=== PATIENT | female | born 1940 | race Caucasian/White ===

== ENCOUNTER 2018-09-17 14:41 | Emergency (ER) | payer MEDICARE ==
[2018-09-17 15:13] LABS: BILIRUBIN,URINE NEGATIVE (NEGATIVE); GLUCOSE, URINE (UA) NEGATIVE (NEGATIVE); KETONES,URINE (UA) NEGATIVE (NEGATIVE); LEUKOCYTE ESTERASE, URINE SMALL (NEGATIVE); NITRITE,URINE NEGATIVE (NEGATIVE); OCCULT BLOOD,URINE TRACE-INTA (NEGATIVE); PROTEIN,URINE NEGATIVE (NEGATIVE); UROBILINOGEN,URINE 0.2 (NORMAL) E.U./dL (NORMAL)
[2018-09-17 15:21] LABS: CLARITY,URINE CLEAR (CLEAR)
[2018-09-17 15:32] LABS: RBC,URINE 0-5 /HPF (0-5); SQUAMOUS EPITHELIAL CELL,UR RARE Squamous (<= Few)
[2018-09-17 15:33] LABS: BACTERIA,URINE Rare /HPF (None Seen)
--- NOTE | 2018-09-17 16:04 | ED Physician Documentation ---
PD HPI ABD PAIN - Stated complaint Stated Complaint: FEMALE - Chief complaint Chief Complaint: UTI - History obtained from History obtained from: Patient - History of Present Illness Timing - onset: How many weeks ago (1) Timing - duration: Weeks (1) Timing - details: Gradual onset, Still present, Waxing and waning Quality: Cramping, Aching (mainly having intermittent pains in flank, lower thoracic area, both sides, and also noted some itching feeling in that same area intermittently. No rash nor sores. Intermittent cramping pain in lower mid abd at times, and noted frequency of urination but not dysuria per se. Denies vaginal bleeding nor discharge. Normal BMs. No fever nor chills. She says she had slight chest discomfort earlier today but not now. Not exertional.) Location: Suprapubic Radiation: Left flank, Right flank Improved by: No: Eating, Laying still Worsened by: No: Eating, Breathing, Position Associated symptoms: No: Fever, Nausea, Dysuria (but frequency) Recently seen: Not recently seen Review of Systems Constitutional: reports: Chills. denies: Fever, Myalgias Nose: denies: Rhinorrhea / runny nose, Congestion Throat: denies: Sore throat Respiratory: denies: Cough GI: reports: Abdominal Pain, Nausea. denies: Abdominal Swelling, Vomiting, Constipation, Diarrhea : reports: Frequency. 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 HEENT: Tonsil/Adenoidectomy - Present Medications Home Medications: Ambulatory Orders Medication Instructions Recorded Confirmed Dexamethasone [Decadron] 4 mg PO DAILY #5 tablet 09/17/18 Sulfamethox/Trimeth 800/160 1 each PO BID #14 tablet 09/17/18 [Bactrim Ds 800/160] Tramadol HCl 50 mg PO Q6H PRN #15 tablet 09/17/18 - Allergies Allergies/Adverse Reactions: Allergies Allergy/AdvReac Type Severity Reaction Status Date / Time amoxicillin Allergy Unknown Verified 09/17/18 14:50 - Living Situation Living Situation: reports: Alone Living Arrangement: reports: At home - Social History Does the pt smoke?: No Smoking Status: Never smoker Does the pt have substance abuse?: No - Family History Family history: reports: Non contributory PD ED PE NORMAL - Vitals Vital signs reviewed: Yes - General General: Alert and oriented X 3, No acute distress, Well developed/nourished - HEENT HEENT: Moist mucous membranes, Pharynx benign - Neck Neck: Supple, no meningeal sign, No adenopathy - Cardiac Cardiac: RRR, No murmur - Respiratory Respiratory: Clear bilaterally - Abdomen Abdomen: Normal bowel sounds, Soft, Non tender, Non distended, No organomegaly - Rectal Rectal: Deferred - Back Back: Other (mild CVA tender both sides) - Derm Derm: Normal color, Warm and dry, No rash, Other (no skin sensitivity at the thoracic area. ) - Neuro Neuro: Alert and oriented X 3, No motor deficit, Normal speech - Psych Psych: Normal mood, Normal affect Results - Vitals Vitals: Vital Signs - 24 hr 09/17/18 09/17/18 14:46 17:17 Temperature 36.6 C Heart Rate 77 76 Respiratory 18 20 Rate Blood Pressure 136/84 H O2 Saturation 99 98 Oxygen O2 Source Room air - Labs Labs: Microbiology 09/17/18 15:00 Urine Culture - Preliminary Urine,Random Laboratory Tests 09/17/18 15:00 Urine Color YELLOW Urine Clarity CLEAR Urine pH 6.0 Ur Specific Solo 1.010 Urine Protein NEGATIVE Urine Glucose (UA) NEGATIVE Urine Ketones NEGATIVE Urine Occult Blood TRACE-INTA Urine Nitrite NEGATIVE Urine Bilirubin NEGATIVE Urine Urobilinogen 0.2 (NORMAL) Ur Leukocyte Esterase SMALL H Urine RBC 0-5 Urine WBC 6-10 H Ur Squamous Epith Cells RARE Squamous Urine Bacteria Rare Ur Microscopic Review INDICATED Urine Culture Comments INDICATED PD MEDICAL DECISION MAKING - ED course Complexity details: considered differential (her urine has suggestion of infection and her symtoms would be c/w that. She does not have abd tenderness on exam here. Seems okay otherwise. ), d/w patient Departure - Departure Disposition: 01 Home, Self Care Clinical Impression: Flank pain UTI (urinary tract infection) Qualifiers: Urinary tract infection type: acute cystitis Hematuria presence: without he maturia Qualified Code(s): N30.00 - Acute cystitis without hematuria Condition: Stable Record reviewed to determine appropriate education?: Yes Instructions: ED Flank Pain Uncertain Cause, ED UTI Cystitis Female Follow-Up: Carroll Borden MD [Primary Care Provider] - Prescriptions: Dexamethasone [Decadron] 4 mg PO DAILY #5 tablet Sulfamethox/Trimeth 800/160 [Bactrim Ds 800/160] 1 each PO BID #14 tablet Tramadol HCl 50 mg PO Q6H PRN #15 tablet PRN Reason: Pain Comments: You do have signs of a mild bladder infection on your urine test. This may be some kidney pain and bladder pain related to that. Given the pain in the back with an itchy type feeling as well, could consider nerve irritation or even a very mild shingles. I would add some Decadron steroid anti-inflammatory daily for several days. Recheck if new symptoms develop or if you not improving over the next several days. Use Tylenol or ibuprofen if needed for pains. Add tramadol if needed for worse pain. Discharge Date/Time: 09/17/18 17:23
[2018-09-17] MEDS ORDERED: DEXAMETHASONE 10 MG/ML VIAL PO STA (16:48)
[2018-09-17] MEDS ORDERED: ACETAMINOPHEN 325 MG TABLET PO STA (16:48)
[2018-09-17] MEDS ORDERED: SULFAMETH/TRIMETH DS 800/160 MG TABLET PO STA (16:48)
[2018-09-17 17:18] VITALS: BP 136/84
== END 2018-09-17 17:23 | disposition home or self-care (01) ==
LOC: ED 14:41
DX: N30.00 Acute cystitis without hematuria (principal); R10.30 Lower abdominal pain, unspecified; L29.9 Pruritus, unspecified
CPT/HCPCS: 81001; 87086; 93005; 99283; A9270; 81003